=== PATIENT | female | born 1935 | race Caucasian/White ===

== ENCOUNTER 2020-09-25 21:08 | Inpatient (IN) | payer MEDICARE, OTHER ==
[~2020-09-25] VITALS: Ht 160 cm; Wt 54.4 kg
[~2020-09-25 21:08] MED LIST: ANTIVERT 25MG T25 MG PO; URECHOLINE25 MG PO
[2020-09-25 23:29] LABS: HEMOGLOBIN 13.1 gm/dl (12.3-15.3); RED BLOOD COUNT 4.59 M/UL (4.00-5.10); WHITE BLOOD COUNT 10.8 K/UL (4.5-11.0)
[2020-09-26] MEDS ORDERED: NORVASC10 MG PO (01:58)
[2020-09-26] MEDS ORDERED: PLAVIX75 MG PO (01:59)
[2020-09-26] MEDS ORDERED: LISINOPRIL40 MG PO (01:59)
[2020-09-26] MEDS ORDERED: PRAVASTATIN SOD40 MG PO (01:59)
[2020-09-26] MEDS ORDERED: VITAMIN D31250 MCG PO (02:00)
[2020-09-26 09:13] LABS: HEMOGLOBIN 12.5 gm/dl (12.3-15.3); RED BLOOD COUNT 4.43 M/UL (4.00-5.10); WHITE BLOOD COUNT 8.4 K/UL (4.5-11.0)
[2020-09-27 06:01] LABS: RED BLOOD COUNT 4.33 M/UL (4.00-5.10)
[2020-09-27 06:02] LABS: WHITE BLOOD COUNT 6.2 K/UL (4.5-11.0)
[2020-09-27] MEDS ORDERED: DECADRON6 MG PO (12:18)
== END 2020-09-27 15:46 | disposition home or self-care (01) | DRG 178 ==
LOC: ER1 21:08 → MED SURG 4 09-26 00:21 → CDU 09-26 00:21 → MED SURG 4 09-26 02:15
PROVIDERS: Internal Medicine; Student in an Organized Health Care Education/Training Program; ADMIT Internal Medicine
PROC: 3E0333Z Introduction of Anti-inflammatory into Peripheral Vein, Percutaneous Approach (ICD-10-PCS; principal; 2020-09-26)
PROC: XW033E5 Introduction of Remdesivir Anti-infective into Peripheral Vein, Percutaneous Approach, New Technology Group 5 (ICD-10-PCS; 2020-09-26)
DX: U07.1 COVID-19 (principal); N17.9 Acute kidney failure, unspecified; I65.29 Occlusion and stenosis of unspecified carotid artery; E78.5 Hyperlipidemia, unspecified; F17.210 Nicotine dependence, cigarettes, uncomplicated; E78.00 Pure hypercholesterolemia, unspecified; I25.10 Atherosclerotic heart disease of native coronary artery without angina pectoris; I12.9 Hypertensive chronic kidney disease with stage 1 through stage 4 chronic kidney disease, or unspecified chronic kidney disease; E86.9 Volume depletion, unspecified; N18.30 Chronic kidney disease, stage 3 unspecified; E86.0 Dehydration; Z90.49 Acquired absence of other specified parts of digestive tract; Z88.0 Allergy status to penicillin
CPT/HCPCS: 0240U; 36415; 36600; 71045; 80048; 80053; 82550; 82553; 82803; 83605; 83690; 83735; 83874; 83880; 84100; 84439; 84443; 84484; 85025; 85652; 86140; 93005; 99285; J1100; J1644; J7030

== ENCOUNTER 2020-10-03 08:34 | Emergency (ER) | payer MEDICARE, OTHER ==
[~2020-10-03 08:34] MED LIST changes: +DECADRON6 MG PO; +LISINOPRIL40 MG PO; +NORVASC10 MG PO; +PLAVIX75 MG PO; +PRAVASTATIN SOD40 MG PO; +VITAMIN D31250 MCG PO
[2020-10-03 09:44] LABS: RED BLOOD COUNT 5.39 M/UL (4.00-5.10)
[2020-10-03 09:49] LABS: HEMOGLOBIN 14.3 gm/dl (12.3-15.3)
== END 2020-10-03 11:05 | disposition home or self-care (01) ==
LOC: ER1 08:34
PROVIDERS: Physician Assistant
DX: U07.1 COVID-19 (principal); I10 Essential (primary) hypertension; E78.5 Hyperlipidemia, unspecified; F17.200 Nicotine dependence, unspecified, uncomplicated; Z88.0 Allergy status to penicillin
CPT/HCPCS: 71045; 80053; 85025; 96374; 99283; J2405

== ENCOUNTER → 2020-11-04 | Outpatient (CLI) | payer MEDICARE, OTHER | LOC: RAD 12:58 | DX: R06.00 Dyspnea, unspecified (principal); R91.8 Other nonspecific abnormal finding of lung field | CPT/HCPCS: 71046 ==

== ENCOUNTER → 2020-11-23 | Outpatient (CLI) | payer MEDICARE, OTHER | LOC: EXRD 14:45 | DX: I65.23 Occlusion and stenosis of bilateral carotid arteries (principal); R09.89 Other specified symptoms and signs involving the circulatory and respiratory systems | CPT/HCPCS: 93880 ==

== ENCOUNTER 2021-01-30 10:12 | Emergency (ER) | payer MEDICARE, OTHER ==
[2021-01-30 11:06] LABS: HEMOGLOBIN 13.3 gm/dl (12.3-15.3); RED BLOOD COUNT 4.77 M/UL (4.00-5.10); WHITE BLOOD COUNT 9.5 K/UL (4.5-11.0)
[2021-01-30] MEDS ORDERED: NITROSTAT0.4 MG SL (16:07)
== END 2021-01-30 16:19 | disposition left against medical advice (07) ==
LOC: ER1 10:12
PROVIDERS: Emergency Medicine
DX: I21.4 Non-ST elevation (NSTEMI) myocardial infarction (principal); F17.200 Nicotine dependence, unspecified, uncomplicated; Z88.0 Allergy status to penicillin; I12.9 Hypertensive chronic kidney disease with stage 1 through stage 4 chronic kidney disease, or unspecified chronic kidney disease; N18.9 Chronic kidney disease, unspecified; E78.5 Hyperlipidemia, unspecified; Z79.82 Long term (current) use of aspirin; Z79.02 Long term (current) use of antithrombotics/antiplatelets; Z86.16 Personal history of COVID-19; Z79.899 Other long term (current) drug therapy
CPT/HCPCS: 71045; 80053; 82550; 82553; 83874; 84484; 85025; 93005; 99285